=== PATIENT | female | born 1940 | race Caucasian/White ===

== ENCOUNTER 2016-08-17 10:26 | Emergency (ER) | payer MEDICARE ==
[~2016-08-17] VITALS: Ht 154.9 cm; Wt 66.8 kg
[~2016-08-17 10:26] MED LIST: AMLO-511 PO; CELE100 PO; ESCI10TA PO; LETR2.5 PO; METF500T4 PO; PIOG15TA13 PO
[2016-08-17] MEDS ORDERED: SITA50 PO (10:35)
[2016-08-17] MEDS ORDERED: SIMV-260 PO (10:35)
[2016-08-17] MEDS ORDERED: CALC1TAB90 PO (10:35)
[2016-08-17] MEDS ORDERED: LISI-661 PO (10:37)
[2016-08-17] MEDS ORDERED: ESCI10TA PO (10:37)
[2016-08-17 10:41] LABS: GLUCOSE,POINT OF CARE 122 MG/DL (70-110)
[2016-08-17] MEDS ORDERED: TraMADol HCL 50 MG TABLET PO ONE (12:30)
[2016-08-17 13:31] VITALS: BP 128/62
== END 2016-08-17 13:57 | disposition home or self-care (01) ==
LOC: EMS 10:27
DX: S00.83XA Contusion of other part of head, initial encounter (principal); E11.9 Type 2 diabetes mellitus without complications; W10.1XXA Fall (on)(from) sidewalk curb, initial encounter; Y93.89 Activity, other specified; Y92.480 Sidewalk as the place of occurrence of the external cause; Y99.8 Other external cause status
CPT/HCPCS: 70450; 70486; 72125; 82962; 99284

== ENCOUNTER 2017-06-18 13:08 | Emergency (ER) | payer MEDICARE ==
[~2017-06-18] VITALS: Ht 154.9 cm; Wt 66.8 kg
[~2017-06-18 13:08] MED LIST changes: +CALC1TAB90 PO; +LISI-661 PO; -PIOG15TA13 PO; +SIMV-260 PO; +SITA50 PO
[2017-06-18] MEDS ORDERED: VITAD1000 PO (13:54)
[2017-06-18 13:57] LABS: GLUCOSE,POINT OF CARE 176 MG/DL (70-110)
[2017-06-18] MEDS ORDERED: IBUPROFEN 600 MG TABLET PO ONE (15:30)
[2017-06-18 16:15] VITALS: BP 148/81
== END 2017-06-18 18:25 | disposition home or self-care (01) ==
LOC: EMS 13:09
DX: S63.91XA Sprain of unspecified part of right wrist and hand, initial encounter (principal); E11.9 Type 2 diabetes mellitus without complications; X58.XXXA Exposure to other specified factors, initial encounter; Y93.89 Activity, other specified; Y92.89 Other specified places as the place of occurrence of the external cause; Y99.8 Other external cause status
CPT/HCPCS: 82962; 99284

== ENCOUNTER 2018-01-02 04:14 | Emergency (ER) | payer MEDICARE ==
[~2018-01-02] VITALS: Ht 154.9 cm; Wt 66.0 kg
[~2018-01-02 04:14] MED LIST changes: -CALC1TAB90 PO; -CELE100 PO; -METF500T4 PO; +METF500T6 PO; +VITAD1000 PO
[2018-01-02] MEDS ORDERED: SITA100 PO (04:26)
[2018-01-02 04:34] LABS: GLUCOSE,POINT OF CARE 117 MG/DL (70-110)
[2018-01-02 05:27] LABS: BASOPHILS % (AUTO) 1.1 % (0.0-2.0); EOSINOPHILS % (AUTO) 3.3 % (1.0-6.0); HEMOGLOBIN 11.8 g/dL (12.0-16.0); LYMPHOCYTES % (AUTO) 24.5 % (22.0-44.0); MEAN CORPUSCULAR HEMOGLOBIN 29.5 pg (26.0-34.0); MEAN CORPUSCULAR HGB CONC 33.8 G/dL (31.0-37.0); MEAN CORPUSCULAR VOLUME 87 fL (80-100); MONOCYTES # (AUTO) 0.8 K/uL (0.1-1.0); MONOCYTES % (AUTO) 9.7 % (2.0-9.0); NEUTROPHILS # (AUTO) 4.9 K/uL (1.8-7.7); NEUTROPHILS % (AUTO) 61.4 % (40.0-70.0); PLATELET COUNT (AUTO) 213 K/uL (150-450); RED BLOOD CELL COUNT(AUTO) 4.01 MIL/uL (4.00-5.20); RED CELL DISTRIBUTION WIDTH 13.5 % (11.5-14.5)
[2018-01-02] MEDS ORDERED: ONDANSETRON HCL 4 MG/2 ML VIAL IVP ONE (05:30)
[2018-01-02 05:45] LABS: ANION GAP 4 mmol/L (8-16); CALCIUM, TOTAL 9.2 mg/dL (8.8-10.5); CARBON DIOXIDE 29 mmol/L (22-29); CHLORIDE 106 mmol/L (98-107); CREATININE 0.68 mg/dL (0.60-1.30); GLUCOSE,RANDOM 118 mg/dL (70-110); POTASSIUM 3.9 mmol/L (3.5-5.1); SODIUM SERUM 139 mmol/L (136-145); UREA NITROGEN, BLOOD 17 mg/dL (7-18)
[2018-01-02 05:46] LABS: GLOMERULAR FILTR. RATE CALC > 60 mL/min (>60)
[2018-01-02 05:50] LABS: ALANINE AMINOTRANSFERASE 20 U/L (12-78); ALBUMIN 3.8 g/dL (3.4-5.0); ALKALINE PHOSPHATASE 83 U/L (46-116); ASPARTATE AMINOTRANSFERASE 13 U/L (15-37); BILIRUBIN,TOTAL 0.6 mg/dL (0.1-1.0); LIPASE 131 U/L (73-393); TOTAL PROTEIN, SERUM 7.2 g/dL (6.4-8.2)
[2018-01-02] MEDS ORDERED: KETOROLAC TROMETHAMINE 30 MG/ML VIAL IVP ONE (06:00)
[2018-01-02] MEDS ORDERED: IOVERSOL 350 MG/ML 100 ML VIAL ONE (06:21)
[2018-01-02] MEDS ORDERED: SODIUM CHLORIDE 0.9% 100 ML ONE (06:22)
[2018-01-02 07:43] LABS: APPEARANCE,URINE CLEAR (CLEAR); BILIRUBIN,URINE NEGATIVE (NEGATIVE); GLUCOSE, URINE (UA) NEGATIVE (NEGATIVE); KETONES,URINE NEGATIVE (NEGATIVE); LEUKOCYTE ESTERASE ,URINE SMALL (NEGATIVE); NITRATE,URINE NEGATIVE (NEGATIVE); OCCULT BLOOD,URINE NEGATIVE (NEGATIVE); PROTEIN,URINE NEGATIVE (NEGATIVE); UROBILINOGEN,URINE 0.2 mg/dL (<=1.0)
[2018-01-02 08:28] LABS: RBC,URINE 0-2 /HPF (0-2)
[2018-01-02 08:29] LABS: BACTERIA,URINE None Seen /HPF (None Seen); SQUAMOUS EPITHELIAL CELL,UR Rare /LPF (None Seen)
[2018-01-02 09:07] VITALS: BP 154/81
== END 2018-01-02 09:39 | disposition home or self-care (01) ==
LOC: EMS 04:15
DX: R10.84 Generalized abdominal pain (principal); R19.7 Diarrhea, unspecified; E11.9 Type 2 diabetes mellitus without complications
CPT/HCPCS: 36415; 74022; 74177; 80053; 81001; 82962; 83690; 84484; 85025; 93005; 96374; 96375; 99285; J1885; J2405; J7050; Q9967

== ENCOUNTER 2021-10-31 08:49 | Emergency (ER) | payer MEDICARE ==
[~2021-10-31] VITALS: Ht 154.9 cm; Wt 65.9 kg
[~2021-10-31 08:49] MED LIST changes: +AMLO-257 PO; -AMLO-511 PO; +CHOL100018 PO; +ESCI-8 PO; -ESCI10TA PO; -LISI-661 PO; +LISI-893 PO; +METF-1211 PO; -METF500T6 PO; +SITA100 PO; -SITA50 PO; -VITAD1000 PO
[2021-10-31 09:07] VITALS: BP 173/66
[2021-10-31] MEDS ORDERED: DULA0.75 SQ (09:08)
[2021-10-31] MEDS ORDERED: DONE-52 PO (12:41)
[2021-10-31] MEDS ORDERED: ATOR40TA71 PO (12:41)
[2021-10-31] MEDS ORDERED: CHOL25TA4 PO (12:42)
[2021-10-31] MEDS: DICLOFENAC SODIUM 1% 100 GM GEL [4GM] TP ONE (13:01)
== END 2021-10-31 15:01 | disposition home or self-care (01) ==
LOC: EMS 08:49
DX: M17.12 Unilateral primary osteoarthritis, left knee (principal); F32.A Depression, unspecified; E11.9 Type 2 diabetes mellitus without complications; Z85.3 Personal history of malignant neoplasm of breast; Z87.898 Personal history of other specified conditions; Z90.11 Acquired absence of right breast and nipple; Z98.890 Other specified postprocedural states
CPT/HCPCS: 99283

== ENCOUNTER 2025-02-18 12:27 | Emergency (ER) | payer OTHER ==
[~2025-02-18] VITALS: Ht 157.5 cm; Wt 66.8 kg
[~2025-02-18 12:27] MED LIST changes: +ATOR40TA71 PO; -CHOL100018 PO; +CHOL25TA4 PO; +DONE-52 PO; +DULA0.75 SQ; -METF-1211 PO; -SIMV-260 PO; -SITA100 PO
[2025-02-18 12:29] VITALS: TEMP 97.6
[2025-02-18 12:56] LABS: PLATELET COUNT (AUTO) 204 K/uL (150-450); RED BLOOD CELL COUNT(AUTO) 4.20 MIL/uL (4.00-5.20); RED CELL DISTRIBUTION WIDTH 14.2 % (11.5-14.5); WHITE BLOOD COUNT (AUTO) 5.8 K/uL (4.5-11.0)
[2025-02-18 13:05] LABS: CALCIUM, TOTAL 9.1 mg/dL (8.8-10.5); CREATININE 0.72 mg/dL (0.60-1.30); GLOMERULAR FILTR. RATE CALC > 60 mL/min (>60); GLUCOSE,RANDOM 109 mg/dL (70-110); SODIUM SERUM 140 mmol/L (136-145); UREA NITROGEN, BLOOD 13 mg/dL (7-18)
[2025-02-18 13:15] LABS: TROPONIN I-HIGH SENSITIVITY 6 ng/L (<51)
[2025-02-18 13:36] LABS: APPEARANCE,URINE CLEAR (CLEAR); GLUCOSE, URINE (UA) NEGATIVE (NEGATIVE); LEUKOCYTE ESTERASE ,URINE MODERATE (NEGATIVE); NITRATE,URINE NEGATIVE (NEGATIVE); OCCULT BLOOD,URINE NEGATIVE (NEGATIVE); SPECIFIC GRAVITIY, URINE 1.009 (1.003-1.030)
[2025-02-18 14:00] VITALS: BP 152/58; PULSE 74; RESP 14; O2SAT 99
[2025-02-18 14:02] LABS: SQUAMOUS EPITHELIAL CELL,UR Few /LPF (None Seen)
== END 2025-02-18 14:36 | disposition home or self-care (01) ==
LOC: EMS 12:29
DX: R42 Dizziness and giddiness (principal); D70.8 Other neutropenia; E11.9 Type 2 diabetes mellitus without complications; F32.A Depression, unspecified; I10 Essential (primary) hypertension; Z85.3 Personal history of malignant neoplasm of breast; Z98.890 Other specified postprocedural states; Z79.811 Long term (current) use of aromatase inhibitors; Z79.899 Other long term (current) drug therapy
CPT/HCPCS: 71045; 80048; 81001; 83880; 84484; 85025; 87077; 87086; 87186; 93005; 99285; 36415-L1; 36415-TC